=== PATIENT | female | born 1985 | race Caucasian/White ===

== ENCOUNTER 2017-02-11 14:10 | Emergency (ER) | payer SELFPAY ==
[2017-02-11] MEDS ORDERED: Sodium Chloride 0.9% 1,000 ML PRIMARY IV ONE (14:20)
[2017-02-11] MEDS ORDERED: NORMAL SALINE 10 ML SYRINGE FLUSH IVP PRN (14:20)
[2017-02-11] MEDS ORDERED: ASPIRIN 81 MG (BABY) CHEWABLE TABLET PO ONE (14:20)
--- NOTE | 2017-02-11 14:23 | EKG ---
[address] [address] Measurements Intervals [place] Rate: 62 P: 32 NE: 139 QRS: 71 QRSD: 92 T: 8 QT: 398 QTc: 403 Interpretive Statements SINUS RHYTHM WITH SINUS ARRHYTHMIA POSSIBLE RIGHT VENTRICULAR CONDUCTION DELAY NONSPECIFIC T-WAVE ABNORMALITY No previous ECG available for comparison Electronically Signed On 02-11-17 15:04:07 MDT by Praveen Dominguez [id number]
[2017-02-11 14:32] LABS: BASOPHILS # (AUTO) 0.02 10*3/UL; BASOPHILS % (AUTO) 0.3 % (0-1); EOSINOPHILS # (AUTO) 0.05 10*3/UL; EOSINOPHILS % (AUTO) 0.8 % (0-8); HEMATOCRIT 43.5 % (37.0-47.0); HEMOGLOBIN 14.9 g/dL (12.0-16.0); LYMPHOCYTES # (AUTO) 1.76 10*3/uL; MEAN CORPUSCULAR HEMOGLOBIN 30.7 PG (27-31); MEAN CORPUSCULAR HGB CONC 34.3 g/dL (33-37); MEAN CORPUSCULAR VOLUME 89.7 FL (81-99); MEAN PLATELET VOLUME 9.2 FL (7.4-12.2); MONOCYTES # (AUTO) 0.59 10*3/UL (0.3-0.8); NEUTROPHILS % (AUTO) 62.7 % (50-80); RED BLOOD COUNT 4.85 10^6/uL (4.20-5.40)
[2017-02-11 14:36] LABS: PLATELET MORPHOLOGY COMMENT NORMAL MORPHOLOGY (NORM); RBC MORPHOLOGY COMMENT NORMAL MORPHOLOGY (NORM); WBC MORPHOLOGY COMMENT NORMAL MORPHOLOGY (NORM)
[2017-02-11 14:44] LABS: BLOOD UREA NITROGEN 11 mg/dL (7-22); BUN/CREATININE RATIO 12.22 (6-20); CALCIUM 9.6 mg/dL (8.7-10.7); EST GLOMERULAR FILTRATION > 60 (>60 ml/min/1.73m(2)); MAGNESIUM 1.8 mg/dL (1.6-2.4); SERUM ALBUMIN 4.5 g/dL (3.5-4.8)
[2017-02-11 15:03] LABS: TROPONIN I < 0.012 ng/mL (< 0.040)
[2017-02-11 15:23] VITALS: RESP 15; TEMP 97.9
--- NOTE | 2017-02-11 16:40 | PDOC ---
General Adult HPI - General Chief Complaint: Palpitations Stated Complaint: LOW HEART RATE, NAUSEA/DIZZY/SOB Date Seen by Provider: 02/11/17 Time Seen by Provider: 14:15 Source: POSITIVE: Patient, Spouse Exam Limitations: POSITIVE: No limitations Nurse's Notes Reviewed & Considered: Yes - History of Present Illness Initial Comment: The patient is a 31-year-old female who presents to the emergency department with multiple complaints. She states that over the past 3 or 4 days she has had chest pains which have been intermittent. She states that she was having pain pretty much continuously all day yesterday. She's had some intermittent pains this morning. In addition she's noticed over the past couple of days that her heart rate has been lower than usual running in the 50s. At times she has felt lightheaded and even short of breath. She has had some palpitations as well. She denies any known history of heart disease however does have some family members who have had heart disease at young ages. She does chew tobacco occasionally. She denies any known history of hypertension, diabetes or hyperlipidemia however she states she just "does not go to the doctor very often ". She states that she does have a history of anxiety and previously has been prescribed Lexapro and Xanax. She has not taken any Xanax recently and is trying to stay away from this medication. She has had increased stress and anxiety recently. She denies illicit drug use and does not drink generally. Have you received a tetanus shot in the past 10 years?: Yes - Patient Home Medications Home Medications: Home Medications HydrOXYzine Cap [Vistaril Cap] 25 mg PO Q6H PRN #20 capsule 02/11/17 - Patient Allergies Allergies/Adverse Reactions: Allergies Allergy/AdvReac Type Severity Reaction Status Date / Time No Known Drug Allergies Allergy NOT Verified 02/11/17 14:22 APPLICABLE Past Medical History - heen HEENT History: Denies History Cardiovascular History: Denies History Respiratory History: Denies History Gastrointestinal History: Denies History Genitourinary History: Denies History Endocrine History: Denies History Musculoskeletal History: Denies History Prosthesis or Implant: No Neurological History: Denies History Blood Disorders: Denies History Psychiatric History: Anxiety Disorders History of Sexually Transmitted Diseases: No Female Reproductive History: Denies History LMP: 02/10/2017 Obstetrical History: Delivery Additional Obstetrical History: x1 Cancer History: Denies History In Past Year Been Physically Harmed or Verbally Threatened: No (PER PATIENT) History of MDRO: No History of Other Communicable Diseases: No Tobacco Use: Never Smoker Alcohol Use: None Substance Use Type: None Previous Surgical History: Yes Type / Date of Surgery: x1, TONSILLECTOMY, LEFT 5TH DIGIT SURGERY Anesthesia Reactions: No Malignant Hyperthermia: No Family History of Malignant Hyperthermia: No Significant Family History: No pertinent family hx Past Medical History Reviewed: Reviewed - No Changes ROS - Limitations ROS Limitations: No Limitations Constitution: DENIES: Chills, Fever Cardiovascular: REPORTS: Chest Pain, Heart Racing, Heart Palpitations. DENIES: Edema Respiratory: REPORTS: Shortness Of Breath (When her chest is hurting she feels like it's difficult to get a deep breath) Neurological: REPORTS: Denies Neuro Symptoms Gastrointestinal: REPORTS: Nausea. DENIES: Abdominal Pain, Vomitting Musculoskeletal: REPORTS: Denies MS Symptoms. DENIES: Lower Extremity Swelling Eyes: REPORTS: Denies Symptoms ENT: REPORTS: Denies Symptoms Skin: DENIES: Rash Psychiatric: POSITIVE: Anxiety General Adult Exam - General Appearance General Appearance: POSITIVE: Alert, Cooperative, No Acute Distress, Anxious - HEENT HEENT: POSITIVE: Head Inspection Nml, Eyes Inspection Nml, Ears Inspection Nml, Pharynx Inspect. Nml - Neck Neck: POSITIVE: Normal Inspection. NEGATIVE: Lymphadenopathy - Respiratory Respiratory: POSITIVE: No Respiratory Distress, Breath Sounds Normal - Cardiovascular Cardiovascular: POSITIVE: Regular Rate & Rhythm, No Murmur Peripheral Pulses: Dorsalis-pedis (R): 2+, Dorsalis-pedis (L): 2+ - Abdomen Abdomen: Soft: (All Quadrants), Normal Bowel Sounds: (All Quadrants), No Distention: (All Quadrants) - Back Back: POSITIVE: Normal Inspection - Skin Skin: POSITIVE: Normal Color, No Rash - Extremities Extremity: Normal ROM: (All Extremities), Normal Inspection: (All Extremities) - Neurological / Psychological Neurological: POSITIVE: Oriented X3, Motor Normal, Sensation Normal General Adult Progress - Results Reviewed by me Xrays/CTs/US Reviewed by me: Yes Radiology Findings: Chest x-ray shows normal heart size and normal lung santizo. Lab Results Reviewed: Yes Lab Results:: Laboratory Results 02/11/17 02/11/17 Range/Units 14:20 14:21 WBC 6.53 (4.8-10.8) 10^3/uL RBC 4.85 (4.20-5.40) 10^6/uL Hgb 14.9 (12.0-16.0) g/dL Hct 43.5 (37.0-47.0) % MCV 89.7 (81-99) FL MCH 30.7 (27-31) PG MCHC 34.3 (33-37) g/dL RDW Std Deviation 40.7 (39-50) fL RDW Coeff of Cristobal 12.5 (11.5-14.5) % Plt Count 323 (140-350) 10*3/uL MPV 9.2 (7.4-12.2) FL Immature Gran % (Auto) 0.2 (0-5) % Neut % (Auto) 62.7 (50-80) % Lymph % (Auto) 27.0 (10-50) % [place] % (Auto) 9.0 (5-15) % Eos % (Auto) 0.8 (0-8) % Baso % (Auto) 0.3 (0-1) % Immature Gran # (Auto) 0.01 10*3/UL Neut # (Auto) 4.10 10*3/UL Lymph # (Auto) 1.76 10*3/uL [place] # (Auto) 0.59 (0.3-0.8) 10*3/UL Eos # (Auto) 0.05 10*3/UL Baso # (Auto) 0.02 10*3/UL WBC Morphology Comment Normal morphology (NORM) Plt Morphology Comment Normal morphology (NORM) RBC Morph Comment Normal morphology (NORM) D-Dimer < 0.19 (0.00-0.59) mg/L Sodium 142 (135-145) meq/L Potassium 3.7 L (3.8-5.2) meq/L Chloride 105 (98-112) meq/L Carbon Dioxide 22 L (23-33) meq/L Anion Gap 15 (5-20) BUN 11 (7-22) mg/dL Creatinine 0.9 (0.50-1.20) mg/dL Estimated GFR > 60 (>60 ml/min/1.73m(2)) BUN/Creatinine Ratio 12.22 (6-20) Glucose 119 H (78-110) mg/dL Calculated Osmolality 293.0 H (267-292) mOsm/kg Calcium 9.6 (8.7-10.7) mg/dL Magnesium 1.8 (1.6-2.4) mg/dL Total Bilirubin 0.9 (0.3-1.2) mg/dL AST 24 (8-39) IU/L ALT 51 (9-52) IU/L Alkaline Phosphatase 54 (38-126) IU/L CK-MB (CK-2) 0.30 (0.00-5.00) NG/ML Troponin I < 0.012 (< 0.040) ng/mL Total Protein 7.6 (6.1-8.0) g/dL Albumin 4.5 (3.5-4.8) g/dL Globulin 3.1 (2.50-4.10) g/dL Albumin/Globulin Ratio 1.40 (1.3-2.0) mg/g TSH 0.417 (0.2700-4.2000) uIU/mL Serum HCG, Qual Negative EKG Interpreted/Reviewed By Me:: Yes EKG Interpretation:: POSITIVE: Normal Sinus Rhythm, Normal Rate, Normal Intervals, Normal QRS, Normal ST/T, Other (She does have T-wave inversions in lead 2, no previous EKGs available for comparison) - Patient's Progress MDM / ED Course: The patient's initial EKG shows no acute ST segment changes. She was given aspirin per chest pain protocol. Her chest x-ray shows normal heart size and normal lung santizo. Her blood work is all unremarkable including a normal troponin, normal d-dimer and normal TSH. Given the duration of her pain and her normal troponin I think a cardiac etiology is much less likely. Her heart rate here has generally been in the 60s which occasionally drops into the 50s. This is a sinus rhythm. This may be secondary to increased vagal tone from stomach upset. She also has some underlying component of anxiety which may be contributing to her current symptoms. She does not desire to take any benzodiazepine-type medications. She was prescribed Atarax as needed for anxiety. She is advised return to the emergency room if she develops any worsening or change in symptoms. She will follow-up with the clinic in 2-3 days for reevaluation and consideration for further testing. - Consult Counseled: POSITIVE: Patient, Family, RE: Lab Results, RE: Radiology Results, RE : DX, RE: Need for F/U Patient Care Time - Estimated PCT Patient Care Time (In Minutes): 30 Vital Signs - Recent Vital Signs Vital Signs: Vital Signs (Last 8 hours) Temp Pulse Pulse Resp BP Pulse Ox 02/11/17 14:15 62 02/11/17 14:10 97.9 F 78 78 15 129/83 99 - VS Reviewed Vital Signs Reviewed: Yes Discharge Clinical Impression: Sinus bradycardia, Chest pain, non-cardiac, Anxiety Discharge Disposition: Discharged to Home Condition: Stable Prescriptions / Orders: HydrOXYzine Cap [Vistaril Cap] 25 mg PO Q6H PRN #20 capsule PRN Reason: Anxiety Patient Instructions Given at Discharge: Chest Pain (ED), Bradycardia (ED), Anxiety (ED) Additional Instructions: The testing done here in the emergency department is reassuring. The EKG does not show any evidence of heart attack. Your heart rate at times does drop down into the 40s or 50s however remains in a sinus rhythm. Your blood work does not show any evidence of heart damage her heart attack which is reassuring given the duration of time that you have been experiencing the symptoms. In addition your blood testing did not show any evidence of blood clot. Chest x- ray showed normal heart size and normal lungs. At this point I would recommend Atarax 25 mg every 4-6 hours as needed for anxiety. Return to the emergency room if any passing out, increased pain, rapid heartbeat, any worsening or change in symptoms. Recommend follow-up with primary care in 3-5 days. Follow Up With: NONE,NONE [Primary Care Provider] -
--- NOTE | 2017-02-12 21:17 | DI ---
[facility] CHEST X-RAY, 02/11/2017 2:20 PM : Clinical History: Chest pain. Previous Exam: None at this facility. There is no acute soft tissue or bony abnormality. Heart size is normal. Lungs are clear. Mediastinal structures are normal. There is a 10 mm ill-defined density in the left apex overlying the posterior aspect of the fourth rib toward the medial clavicular line. Followup with an apical lordotic film us ing low kilovoltage technique in the range of 70-76 KVP is recommended to see if this represents a ca lcified granuloma. Readin. There is no acute infiltrate or effusion. 2. There is a 10 mm ill-defined density in the left apex overlying the left fourth rib. An apical lo rdotic chest x-ray using low kilovoltage technique in the range of 70-76 KVP is recommended to see if this represents a calcified granuloma. Fluoroscopy may be required as well.
== END 2017-02-11 15:50 | disposition home or self-care (01) ==
LOC: ER 14:10
DX: R00.1 Bradycardia, unspecified (principal); R07.89 Other chest pain; F41.9 Anxiety disorder, unspecified; R06.02 Shortness of breath; R42 Dizziness and giddiness
CPT/HCPCS: 71010; 80053; 82553; 83735; 84443; 84484; 84703; 85025; 85379; 93005; 93010; 99283; J7030